=== PATIENT | female | born 1945 | race Caucasian/White ===

== ENCOUNTER 2021-06-08 10:15 | Inpatient (IN) | payer MEDICAID, OTHER ==
[~2021-06-08] VITALS: Ht 154.9 cm; Wt 68.5 kg
[2021-06-08 13:31] LABS: BASOPHILS % 0.7 % (0.0-2.0); EOSINOPHILS % 1.5 % (0.0-5.0); LYMPHOCYTES % 9.6 % (20.0-50.0); MEAN CORPUSCULAR HEMOGLOBIN 25.7 pg (28.0-32.0); MEAN CORPUSCULAR VOLUME 87.1 fL (81.0-99.0); MEAN PLATELET VOLUME 7.8 fl (7.4-10.4); MONOCYTES % 6.4 % (2.0-8.0); NEUTROPHILS % 81.8 % (40.0-76.0); PLATELET 263 x1000/uL (130-400); RED CELL DISTRIBUTION WIDTH 19.2 % (11.6-14.6)
[2021-06-08 13:33] LABS: HEMATOCRIT. 19.2 % (36.0-48.0); HEMOGLOBIN. 5.7 g/dL (12.0-16.0)
[2021-06-08 13:37] LABS: CHLORIDE 100 mEq/L (98-107)
[2021-06-08] MEDS ORDERED: DEXTROSE 50% WATER 50ML SYRINGE IV SCH (14:00)
[2021-06-08] MEDS ORDERED: FUROSEMIDE 100MG/10ML VIAL IV SCH (14:00)
[2021-06-08] MEDS ORDERED: CALCIUM GLUCONATE 100MG/ML 10ML VIAL IV SCH (14:00)
[2021-06-08] MEDS ORDERED: INSULIN REGULAR (HUMULIN R) 300UNITS/3ML VIAL IV SCH (14:00)
[2021-06-08] MEDS ORDERED: SODIUM POLYSTYRENE SULFONATE 15 G/60 ML BOT PO SCH (14:00)
[2021-06-08] MEDS ORDERED: SODIUM BICARBONATE 8.4% 1 MEQ/ML 50ML SYR IV SCH (14:00)
[2021-06-08] MEDS ORDERED: INSULIN REGULAR (HUMULIN R) 300UNITS/3ML VIAL SUBCUT ONE (15:00)
[2021-06-08] MEDS ORDERED: LORAZEPAM 2MG/ML CPJ IV PRN (16:30)
[2021-06-08] MEDS ORDERED: ONDANSETRON HCL 4MG/2ML INJ IV PRN (16:30)
[2021-06-08] MEDS ORDERED: ACETAMINOPHEN 325MG TABLET PO PRN (16:30)
[2021-06-08] MEDS ORDERED: HYDROCODONE/ACETAMINOPHEN 5/325MG TABLET PO PRN (16:30)
[2021-06-08] MEDS ORDERED: DIPHENHYDRAMINE 50MG/ML VIAL IV PRN (16:30)
[2021-06-08] MEDS ORDERED: IPRATROPIUM/ALBUTEROL 0.5-3(2.5)MG/3ML NEB HHN PRN (16:30)
[2021-06-08] MEDS ORDERED: MAGNESIUM/ALUMINUM HYDROXIDE/SIMETHICONE 30ML UDC PO PRN (16:30)
[2021-06-08] MEDS ORDERED: CLONIDINE 0.1MG TABLET PO PRN (16:30)
[2021-06-08] MEDS ORDERED: GUAIFENESIN 200MG/10ML SUGAR FREE UDC PO PRN (16:30)
[2021-06-08] MEDS ORDERED: LIDOCAINE HCL 1% 20ML VIAL (Pyxis) INJ INFIL ONE (16:45)
[2021-06-08 17:14] LABS: HEPATITIS B SURFACE ANTIGEN NEGATIVE
[2021-06-08] MEDS ORDERED: MORPHINE SULFATE 2 MG/ML CPJ (NOT FOR IM USE) IV ONE (17:45)
[2021-06-08] MEDS ORDERED: NALOXONE HCL 0.4MG/ML VIAL IV PRN (20:15)
[2021-06-08 21:08] VITALS: BP_SYST 177; BP_DIAS 66; BP_DIAS 69
[2021-06-08 22:00] VITALS: BP 156/82
[2021-06-08] MEDS ORDERED: DEXT 5%/0.45% NACL 500ML 500 ML IV ONE (22:30)
[2021-06-09] VITALS (25 sets, daily range): BP systolic 118–195; BP diastolic 42–95
[2021-06-09] MEDS: SODIUM CHLORIDE 0.9% INJ 3ML FLUSH IVF SCH ×4 (01:55→21:38)
[2021-06-09] MEDS: HYDRALAZINE 20MG/ML VIAL IV PRN ×2 (03:14→12:29)
[2021-06-09] MEDS: MORPHINE SULFATE 2 MG/ML CPJ (NOT FOR IM USE) IV PRN (05:17)
[2021-06-09 06:47] LABS: CHLORIDE 104 mEq/L (98-107)
[2021-06-09 07:05] LABS: HEMATOCRIT. 25.9 % (36.0-48.0); HEMOGLOBIN. 8.5 g/dL (12.0-16.0); MEAN CORPUSCULAR HEMOGLOBIN 27.4 pg (28.0-32.0); MEAN CORPUSCULAR VOLUME 83.1 fL (81.0-99.0); MEAN PLATELET VOLUME 7.4 fl (7.4-10.4); PLATELET 212 x1000/uL (130-400); RED BLOOD CELL COUNT 3.12 mill/uL (4.2-5.4)
[2021-06-09 07:06] LABS: TOTAL IRON BINDING CAPACITY 250 ug/dL (250-450)
[2021-06-09 07:11] LABS: FOLIC ACID (FOLATE) SERUM 12.2 ng/mL (>5.38)
[2021-06-09] MEDS ORDERED: HYDR-4135 PO (07:55)
[2021-06-09] MEDS ORDERED: ROPI0.5T6 PO (07:55)
[2021-06-09] MEDS ORDERED: ASPI-1406 PO (07:55)
[2021-06-09] MEDS ORDERED: REN800 PO (07:55)
[2021-06-09] MEDS ORDERED: AMLO10TA80 PO (07:55)
[2021-06-09] MEDS ORDERED: TRAZ-251 PO (07:55)
[2021-06-09] MEDS ORDERED: LISI40TA13 PO (07:55)
[2021-06-09] MEDS ORDERED: GABA-529 PO (07:55)
[2021-06-09] MEDS ORDERED: TRAM50TA3 PO (07:55)
[2021-06-09] MEDS ORDERED: OMEP40CA12 PO (07:55)
[2021-06-09] MEDS ORDERED: SUCR1TAB PO (07:55)
[2021-06-09] MEDS ORDERED: LOVA20TA2 PO (07:55)
[2021-06-09] MEDS: LISINOPRIL 40MG TABLET PO SCH (09:13)
[2021-06-09] MEDS: DOCUSATE SODIUM 100MG CAPSULE PO PRN (09:13)
[2021-06-09] MEDS: AMLODIPINE 10MG TABLET PO SCH (09:14)
[2021-06-09] MEDS: HYDRALAZINE HCL 50MG TABLET PO SCH ×3 (09:16→21:36)
[2021-06-09] MEDS: GABAPENTIN 100MG CAPSULE PO SCH ×3 (09:16→21:36)
[2021-06-09 10:43] LABS: PARTIAL THROMBOPLASTIN TIME 25.3 sec (23.4-31.0); PROTHROMBIN TIME 10.9 sec (9.6-11.0)
[2021-06-09 17:24] LABS: PLATELET ESTIMATE NORMAL
[2021-06-09] MEDS: TRAZODONE HCL 50MG TABLET PO SCH (21:28)
[2021-06-10] VITALS (40 sets, daily range): BP systolic 118–174; BP diastolic 44–95
[2021-06-10] MEDS: HYDRALAZINE HCL 50MG TABLET PO SCH ×3 (06:00→21:38)
[2021-06-10] MEDS: GABAPENTIN 100MG CAPSULE PO SCH ×3 (06:00→21:38)
[2021-06-10] MEDS: SODIUM CHLORIDE 0.9% INJ 3ML FLUSH IVF SCH ×3 (06:03→21:39)
[2021-06-10 07:11] LABS: A/G RATIO 1.2 (0.7-1.7); ALPHA-1-GLOBULIN 0.2 g/dL (0.0-0.4); ALPHA-2-GLOBULIN 0.5 g/dL (0.4-1.0); BETA GLOBULIN 0.7 g/dL (0.7-1.3); CANCER ANTIGEN 125 17.4 U/mL (0.0-38.1); GAMMA GLOBULINS 1.1 g/dL (0.4-1.8); GLOBULIN TOTAL 2.6 g/dL (2.2-3.9); M-SPIKE Not Observed g/dL (Not Observed); TOTAL PROTEIN SERUM 5.6 g/dL (6.0-8.5)
[2021-06-10 07:14] LABS: BASOPHILS % 0.7 % (0.0-2.0); EOSINOPHILS % 2.4 % (0.0-5.0); HEMATOCRIT. 23.6 % (36.0-48.0); HEMOGLOBIN. 7.7 g/dL (12.0-16.0); LYMPHOCYTES % 14.4 % (20.0-50.0); MEAN CORPUSCULAR HEMOGLOBIN 27.3 pg (28.0-32.0); MEAN CORPUSCULAR VOLUME 83.7 fL (81.0-99.0); MEAN PLATELET VOLUME 8.1 fl (7.4-10.4); MONOCYTES % 12.4 % (2.0-8.0); NEUTROPHILS % 70.1 % (40.0-76.0); PLATELET 197 x1000/uL (130-400); RED BLOOD CELL COUNT 2.81 mill/uL (4.2-5.4); RED CELL DISTRIBUTION WIDTH 17.3 % (11.6-14.6)
[2021-06-10] MEDS ORDERED: CEFAZOLIN 1000MG PREMIX 50 ML IV SCH (07:15)
[2021-06-10] MEDS ORDERED: FENTANYL CITRATE/PF 50MCG/ML 2ML VIAL ONE (07:29)
[2021-06-10] MEDS ORDERED: CEFAZOLIN 1000MG PREMIX 50 ML IV ONE (07:29)
[2021-06-10] MEDS ORDERED: LIDOCAINE HCL 1% 20ML VIAL (Pyxis) INJ ONE (07:42)
[2021-06-10] MEDS ORDERED: HEPARIN 1000 UNITS/ML 10ML ONE (07:42)
[2021-06-10] MEDS ORDERED: IOHEXOL-300 100 ML BOTTLE ONE (08:07)
[2021-06-10] MEDS: DOCUSATE SODIUM 100MG CAPSULE PO PRN (09:26)
[2021-06-10] MEDS: LISINOPRIL 40MG TABLET PO SCH (09:26)
[2021-06-10] MEDS: AMLODIPINE 10MG TABLET PO SCH (09:26)
[2021-06-10] MEDS ORDERED: FENTANYL CITRATE/PF 50MCG/ML 1ML VIAL IV ONE (15:00)
[2021-06-10] MEDS ORDERED: FENTANYL CITRATE/PF 50MCG/ML 2ML VIAL IV ONE ×2 (15:00)
[2021-06-10] MEDS ORDERED: EPOETIN ALFA-EPBX 10,000 UNIT/ML VIAL SUBCUT SCH (21:00)
[2021-06-10] MEDS: TRAZODONE HCL 50MG TABLET PO SCH (21:38)
[2021-06-11] VITALS (12 sets, daily range): BP systolic 125–182; BP diastolic 33–82
[2021-06-11] MEDS ORDERED: HEPARIN SODIUM 1,000 UNIT/1ML VIAL IV NR (01:45)
[2021-06-11] MEDS: GABAPENTIN 100MG CAPSULE PO SCH ×3 (05:17→21:48)
[2021-06-11] MEDS: HYDRALAZINE HCL 50MG TABLET PO SCH ×3 (05:18→21:48)
[2021-06-11] MEDS: SODIUM CHLORIDE 0.9% INJ 3ML FLUSH IVF SCH ×3 (05:18→21:50)
[2021-06-11] MEDS: AMLODIPINE 10MG TABLET PO SCH (08:30)
[2021-06-11] MEDS: DOCUSATE SODIUM 100MG CAPSULE PO PRN (08:30)
[2021-06-11] MEDS: LISINOPRIL 40MG TABLET PO SCH (08:30)
[2021-06-11] MEDS: MORPHINE SULFATE 2 MG/ML CPJ (NOT FOR IM USE) IV PRN (08:31)
[2021-06-11 12:09] LABS: BASOPHILS % 0.7 % (0.0-2.0); EOSINOPHILS % 1.8 % (0.0-5.0); HEMATOCRIT. 26.3 % (36.0-48.0); HEMOGLOBIN. 8.5 g/dL (12.0-16.0); LYMPHOCYTES % 9.3 % (20.0-50.0); MEAN CORPUSCULAR HEMOGLOBIN 26.6 pg (28.0-32.0); MEAN CORPUSCULAR VOLUME 82.7 fL (81.0-99.0); MEAN PLATELET VOLUME 8.3 fl (7.4-10.4); MONOCYTES % 9.7 % (2.0-8.0); NEUTROPHILS % 78.5 % (40.0-76.0); PLATELET 189 x1000/uL (130-400); RED BLOOD CELL COUNT 3.19 mill/uL (4.2-5.4); RED CELL DISTRIBUTION WIDTH 16.9 % (11.6-14.6)
[2021-06-11 14:29] LABS: BG BASE EXCESS 3.5 mmol/L (-2.0-2.0); BG CARBOXYHEMOGLOBIN 0.4 % (0.5-1.5); BG DEOXYHEMOGLOBIN 16.3 % (0.0-5.0); BG FRACTION INSPIRED OXYGEN 21; BG HCO3 ACT 28.6 mmol/L (22.0-26.0); BG METHEMOGLOBIN 0.3 % (0.0-1.5); BG OXYGEN SATURATION 83.6 % (92.0-98.5); BG PH 7.411 (7.350-7.450); BG PO2 47.7 mmHg (75.0-100.0); BG SAMPLE SITE RIGHT RADIAL; BG TOTAL HEMOGLOBIN 8.6 g/dL (12.0-18.0); BG VENT MODE ROOM AIR
[2021-06-11] MEDS: TRAZODONE HCL 50MG TABLET PO SCH (21:48)
[2021-06-12] VITALS (8 sets, daily range): BP systolic 133–171; BP diastolic 35–66
[2021-06-12] MEDS: HYDRALAZINE HCL 50MG TABLET PO SCH ×2 (06:21→16:48)
[2021-06-12] MEDS: GABAPENTIN 100MG CAPSULE PO SCH ×2 (06:21→16:48)
[2021-06-12] MEDS: SODIUM CHLORIDE 0.9% INJ 3ML FLUSH IVF SCH (06:22)
[2021-06-12] MEDS: AMLODIPINE 10MG TABLET PO SCH ×2 (09:00→16:48)
[2021-06-12] MEDS: LISINOPRIL 40MG TABLET PO SCH (09:00)
[2021-06-12] MEDS ORDERED: HEPARIN SODIUM 1,000 UNIT/1ML VIAL IV NR (09:30)
== END 2021-06-12 21:40 | disposition home or self-care (01) | DRG 466 ==
LOC: ER 10:15 → MICUSO 15:53 → 3WST 19:59 → 6WST 06-12 02:08
PROVIDERS: ADMIT Internal Medicine; ATTEND Internal Medicine
PROC: 02H633Z Insertion of Infusion Device into Right Atrium, Percutaneous Approach (ICD-10-PCS; principal; 2021-06-08)
PROC: B548ZZA Ultrasonography of Superior Vena Cava, Guidance (ICD-10-PCS; 2021-06-08)
PROC: 5A1D70Z Performance of Urinary Filtration, Intermittent, Less than 6 Hours Per Day (ICD-10-PCS; 2021-06-08)
PROC: 30233N1 Transfusion of Nonautologous Red Blood Cells into Peripheral Vein, Percutaneous Approach (ICD-10-PCS; 2021-06-09)
PROC: 0JH63XZ Insertion of Tunneled Vascular Access Device into Chest Subcutaneous Tissue and Fascia, Percutaneous Approach (ICD-10-PCS; 2021-06-10)
PROC: 02H633Z Insertion of Infusion Device into Right Atrium, Percutaneous Approach (ICD-10-PCS; 2021-06-10)
PROC: B548ZZA Ultrasonography of Superior Vena Cava, Guidance (ICD-10-PCS; 2021-06-10)
PROC: B5181ZA Fluoroscopy of Superior Vena Cava using Low Osmolar Contrast, Guidance (ICD-10-PCS; 2021-06-10)
PROC: 06H03DZ Insertion of Intraluminal Device into Inferior Vena Cava, Percutaneous Approach (ICD-10-PCS; 2021-06-10)
PROC: 5A1D70Z Performance of Urinary Filtration, Intermittent, Less than 6 Hours Per Day (ICD-10-PCS; 2021-06-10)
PROC: 5A1D70Z Performance of Urinary Filtration, Intermittent, Less than 6 Hours Per Day (ICD-10-PCS; 2021-06-12)
DX: T82.898A Other specified complication of vascular prosthetic devices, implants and grafts, initial encounter (principal); I12.0 Hypertensive chronic kidney disease with stage 5 chronic kidney disease or end stage renal disease; E44.1 Mild protein-calorie malnutrition; I82.411 Acute embolism and thrombosis of right femoral vein; E87.1 Hypo-osmolality and hyponatremia; J90 Pleural effusion, not elsewhere classified; I95.9 Hypotension, unspecified; E11.22 Type 2 diabetes mellitus with diabetic chronic kidney disease; D64.9 Anemia, unspecified; T82.510A Breakdown (mechanical) of surgically created arteriovenous fistula, initial encounter; E87.5 Hyperkalemia; N18.6 End stage renal disease; Z20.822 Contact with and (suspected) exposure to COVID-19; E87.6 Hypokalemia; R09.02 Hypoxemia; Y82.8 Other medical devices associated with adverse incidents; Z79.899 Other long term (current) drug therapy; Z79.82 Long term (current) use of aspirin; Z82.49 Family history of ischemic heart disease and other diseases of the circulatory system; Z99.2 Dependence on renal dialysis; Z91.15 Patient's noncompliance with renal dialysis; Y92.89 Other specified places as the place of occurrence of the external cause; Z68.28 Body mass index [BMI] 28.0-28.9, adult
CPT/HCPCS: 36415; 36558; 36600; 37191; 71045; 74018; 76937; 77001; 80048; 80053; 82375; 82607; 82746; 82805; 82962; 83540; 83550; 83880; 84155; 84165; 84443; 84484; 85025; 86304; 86705; 86709; 86803; 86850; 86900; 86920; 87340; 87426; 93005; 93970; 93971; 99291; C1750; C1769; C1880; J0360; J0610; J0690; J0885; J1644; J1815; J1940; J2270; J3010; J3490; J7040; P9016; Q9967; U0003; U0005

== ENCOUNTER 2021-06-14 21:10 | Emergency (ER) | payer OTHER ==
[~2021-06-14] VITALS: Ht 157.5 cm; Wt 71.0 kg
[~2021-06-14 21:10] MED LIST: AMLO10TA80 PO; ASPI-1406 PO; GABA-529 PO; HYDR-4135 PO; LISI40TA13 PO; LOVA20TA2 PO; OMEP40CA20 PO; REN800 PO; ROPI0.5T6 PO; SUCR1TAB PO; TRAM50TA3 PO; TRAZ-251 PO
[2021-06-14] MEDS ORDERED: ACETAMINOPHEN 325MG TABLET PO STA (23:47)
[2021-06-15 00:17] LABS: BASOPHILS % 1.1 % (0.0-2.0); EOSINOPHILS % 0.5 % (0.0-5.0); HEMATOCRIT. 24.3 % (36.0-48.0); HEMOGLOBIN. 8.2 g/dL (12.0-16.0); LYMPHOCYTES % 8.9 % (20.0-50.0); MEAN CORPUSCULAR HEMOGLOBIN 27.6 pg (28.0-32.0); MEAN CORPUSCULAR VOLUME 81.3 fL (81.0-99.0); MEAN PLATELET VOLUME 7.9 fl (7.4-10.4); MONOCYTES % 8.4 % (2.0-8.0); NEUTROPHILS % 81.1 % (40.0-76.0); PLATELET 286 x1000/uL (130-400); RED BLOOD CELL COUNT 2.99 mill/uL (4.2-5.4); RED CELL DISTRIBUTION WIDTH 16.8 % (11.6-14.6)
[2021-06-15 00:26] LABS: CHLORIDE 103 mEq/L (98-107)
[2021-06-15] MEDS ORDERED: AZITHROMYCIN 500 MG in DEXT 5% WATER 250 ML IV NR (02:30)
[2021-06-15] MEDS ORDERED: CEFTRIAXONE 1 G PREMIX 50 ML IV NR (03:00)
[2021-06-15 04:21] VITALS: BP 148/50
== END 2021-06-15 04:21 | disposition short-term general hospital (02) ==
LOC: ER 21:10
DX: A41.9 Sepsis, unspecified organism (principal); J18.9 Pneumonia, unspecified organism; E11.22 Type 2 diabetes mellitus with diabetic chronic kidney disease; I12.0 Hypertensive chronic kidney disease with stage 5 chronic kidney disease or end stage renal disease; N18.6 End stage renal disease; Z20.822 Contact with and (suspected) exposure to COVID-19; Z99.2 Dependence on renal dialysis; Z99.81 Dependence on supplemental oxygen; Z79.82 Long term (current) use of aspirin
CPT/HCPCS: 36415; 71045; 80053; 83605; 84145; 85025; 87040; 93005; 96365; 96368; 99291; J0456; J0696; J7060; Z7610; 87426

== ENCOUNTER 2021-07-13 08:50 | Emergency (ER) | payer OTHER ==
[~2021-07-13] VITALS: Ht 152.4 cm; Wt 70.0 kg
[2021-07-13] MEDS ORDERED: SODIUM CHLORIDE 0.9% 1,000 ML IV ONE (09:30)
[2021-07-13] MEDS ORDERED: VANCOMYCIN 1 G PREMIX 200 ML IV ONE (10:15)
[2021-07-13] MEDS ORDERED: PIPERACILLIN/TAZ 3.375G PREMIX 50 ML IV ONE (10:15)
[2021-07-13 10:35] LABS: EOSINOPHILS % 2.9 % (0.0-5.0); HEMATOCRIT. 27.4 % (36.0-48.0); HEMOGLOBIN. 9.2 g/dL (12.0-16.0); LYMPHOCYTES % 13.7 % (20.0-50.0); MEAN CORPUSCULAR HEMOGLOBIN 30.9 pg (28.0-32.0); MEAN CORPUSCULAR VOLUME 92.2 fL (81.0-99.0); MEAN PLATELET VOLUME 7.8 fl (7.4-10.4); MONOCYTES % 9.6 % (2.0-8.0); NEUTROPHILS % 72.8 % (40.0-76.0); PLATELET 223 x1000/uL (130-400); RED BLOOD CELL COUNT 2.97 mill/uL (4.2-5.4); RED CELL DISTRIBUTION WIDTH 19.9 % (11.6-14.6)
[2021-07-13 10:41] LABS: CHLORIDE 103 mEq/L (98-107)
[2021-07-13 12:15] LABS: INR 1.1; PROTHROMBIN TIME 11.4 sec (9.6-11.0)
[2021-07-13 12:58] LABS: CLARITY URINE TURBID (CLEAR); COLOR URINE YELLOW (YELLOW); KETONES URINE NEGATIVE (NEGATIVE); LEUKOCYTE ESTERASE URINE 3+ (NEGATIVE); NITRITE URINE NEGATIVE (NEGATIVE); OCCULT BLOOD URINE NEGATIVE (NEGATIVE); PROTEIN URINE 3+ (NEGATIVE); UROBILINOGEN URINE 0.2 E.U./dL (0.2-1.0)
[2021-07-13 13:08] LABS: HEPATITIS B SURFACE ANTIGEN NEGATIVE
[2021-07-13 14:19] VITALS: BP 151/58
== END 2021-07-13 14:15 | disposition short-term general hospital (02) ==
LOC: ER 08:50 → CANBEDREQ 18:37
DX: T82.7XXA Infection and inflammatory reaction due to other cardiac and vascular devices, implants and grafts, initial encounter (principal); E11.22 Type 2 diabetes mellitus with diabetic chronic kidney disease; I12.0 Hypertensive chronic kidney disease with stage 5 chronic kidney disease or end stage renal disease; N18.6 End stage renal disease; Z91.15 Patient's noncompliance with renal dialysis; Z79.82 Long term (current) use of aspirin; Z99.2 Dependence on renal dialysis; Y84.1 Kidney dialysis as the cause of abnormal reaction of the patient, or of later complication, without mention of misadventure at the time of the procedure; Y92.018 Other place in single-family (private) house as the place of occurrence of the external cause
CPT/HCPCS: 36415; 71045; 80053; 81003; 83605; 84145; 84484; 85025; 85610; 86705; 86709; 86803; 87040; 87086; 87340; 93005; 96365; 96366; 96368; 99285; J2543; J3370; J7030

== ENCOUNTER 2021-08-02 18:23 | Emergency (ER) | payer OTHER, MEDICAID ==
[~2021-08-02] VITALS: Ht 162.6 cm; Wt 67.0 kg
[2021-08-02] MEDS ORDERED: NITROGLYCERIN OINT 1GM/INCH UDPKT TD ONE (19:45)
[2021-08-02] MEDS ORDERED: AZITHROMYCIN 500MG/250ML 250 ML IV ONE (20:45)
[2021-08-02] MEDS ORDERED: CEFTRIAXONE 1 G PREMIX 50 ML IV ONE (20:45)
[2021-08-02 21:54] LABS: HEMATOCRIT. 24.3 % (36.0-48.0); HEMOGLOBIN. 7.8 g/dL (12.0-16.0); MEAN CORPUSCULAR VOLUME 89.8 fL (81.0-99.0); MEAN PLATELET VOLUME 8.7 fl (7.4-10.4); PLATELET 246 x1000/uL (130-400); RED CELL DISTRIBUTION WIDTH 17.4 % (11.6-14.6)
[2021-08-02 21:59] LABS: CHLORIDE 105 mEq/L (98-107)
[2021-08-02 22:35] LABS: INR 1.1; PROTHROMBIN TIME 11.6 sec (9.6-11.0)
[2021-08-02 22:50] LABS: PLATELET ESTIMATE NORMAL
[2021-08-03 03:08] VITALS: BP 161/74
== END 2021-08-03 03:00 | disposition short-term general hospital (02) ==
LOC: ER 18:23 → CANBEDREQ 08-03 03:16
DX: J18.9 Pneumonia, unspecified organism (principal); J91.8 Pleural effusion in other conditions classified elsewhere; E87.70 Fluid overload, unspecified; E11.22 Type 2 diabetes mellitus with diabetic chronic kidney disease; I12.0 Hypertensive chronic kidney disease with stage 5 chronic kidney disease or end stage renal disease; N18.6 End stage renal disease; D63.1 Anemia in chronic kidney disease; J44.9 Chronic obstructive pulmonary disease, unspecified; Z20.822 Contact with and (suspected) exposure to COVID-19; Z99.81 Dependence on supplemental oxygen; Z99.2 Dependence on renal dialysis
CPT/HCPCS: 36415; 71045; 80053; 83880; 84484; 85025; 85610; 86850; 86900; 86901; 87426; 93005; 96365; 96367; 99291; J0456; J0696

== ENCOUNTER 2021-08-19 17:50 | Emergency (ER) | payer MEDICAID, OTHER ==
[~2021-08-19] VITALS: Ht 165.1 cm; Wt 78.0 kg
[2021-08-19 18:00] VITALS: BP 55/0
[2021-08-19] MEDS ORDERED: NALOXONE HCL 1 MG/ML 2ML VIAL ONE (18:04)
[2021-08-19 18:22] LABS: CHLORIDE 101 mEq/L (98-107)
== END 2021-08-20 ==
LOC: ER 17:50
DX: I46.9 Cardiac arrest, cause unspecified (principal); I12.0 Hypertensive chronic kidney disease with stage 5 chronic kidney disease or end stage renal disease; E11.22 Type 2 diabetes mellitus with diabetic chronic kidney disease; J44.9 Chronic obstructive pulmonary disease, unspecified; N18.6 End stage renal disease; Z66 Do not resuscitate; Z99.2 Dependence on renal dialysis; Z79.82 Long term (current) use of aspirin
CPT/HCPCS: 31500; 36415; 36556; 80053; 82962; 93005; 99291; J2310